=== PATIENT | male | born 1970 | race Caucasian/White ===

== ENCOUNTER → 2019-10-11 11:51 | Outpatient (CLI) | payer MEDICARE, MEDICAID, SELFPAY ==
--- NOTE | 2019-10-11 | DI.CT.S_ITS ---
PROCEDURE: CT CHEST ABD PEL W CON INDICATIONS: Centrilobular emphysema,Gastro-esophageal reflux d TECHNIQUE: After the administration of oral and intravenous contrast, 5 mm thick sections acquired from the lung apices to the symphysis. 5 mm coronal and sagittal reformats were performed, with additional 7 mm coronal MIP reformats through the lungs. For radiation dose reduction, the following was used: automated exposure control, adjustment of mA and/or kV according to patient size. COMPARISON: [facility], CT, CT ABD PELVIS W CON, 10/01/2016, 23:53. FINDINGS: Image quality: Excellent. CHEST: Lungs and pleura: No acute airspace opacities. No pleural effusions or pneumothorax. Central and peripheral airways appear patent and normal in caliber. Mediastinum: Heart size is normal. No pericardial effusion. No mediastinal or hilar adenopathy by size criteria. Thoracic aorta and central pulmonary arteries are normal in size. Esophagus is normal in caliber. No hiatal hernia. Chest wall: No axillary or supraclavicular adenopathy by size criteria. Thyroid gland unremarkable. ABDOMEN: Solid organs: Hepatic steatosis. Right lobe subcapsular enhancement presumably vascular shunting, and unchanged appearance. Gallbladder contains multiple rim calcified gallstones. Biliary system is non dilated. Pancreas enhances normally. Spleen is normal in size and enhancement. No adrenal nodules. Kidneys demonstrate normal size and enhancement, without hydronephrosis. Peritoneum and bowel: Bowel loops demonstrate normal wall thickness and caliber. No free fluid or air. Normal appendix. Rectum grossly unremarkable. Nodes and vessels: No retroperitoneal or mesenteric adenopathy by size criteria. Aorta and inferior vena cava are normal in size. Miscellaneous: No ventral hernias. PELVIS: Genitourinary: Bladder mural thickening is again noted, with circumferential appearance. Miscellaneous: Small bilateral fat containing inguinal hernias. No pelvic adenopathy. Bones: No suspicious bony lesions. No vertebral body compression fractures. IMPRESSION: Redemonstration of circumferential bladder wall thickening, grossly unchanged since 10/01/16 however technically still cannot exclude bladder malignancy, versus chronic cystitis. As clinically warranted, further investigation could be performed with cystoscopy. Cholelithiasis as before. No CT evidence of acute cholecystitis Hepatic steatosis. Additional chronic and incidental findings as above. Dictated by: Miguel Hernandez M.D. on 10/11/2019 at 15:53 Approved by: Miguel Hernandez M.D. on 10/11/2019 at 16:05
--- NOTE | 2019-10-11 | DI.RAD.S_ITS ---
PROCEDURE: XR LUMBAR SPINE 2-3V INDICATIONS: CERVICAL AND LOW BACK PAIN. ARTHRITIS TECHNIQUE: 3 views of the lumbar spine were acquired. COMPARISON: None. FINDINGS: Bones: No fracture or focal osseous destruction. Levocurvature of the lumbar spine. Moderate narrowing of L4-L5 disc space. Multilevel degenerative endplate sclerosis and spurring. Diffuse facet arthropathy. Soft tissues: Residual contrast material seen within both renal collecting systems and ureters, bladder. IMPRESSION: Moderate L4-L5 disc degeneration. Diffuse facet arthropathy Mild levoscoliosis. Dictated by: Miguel Hernandez M.D. on 10/11/2019 at 17:15 Approved by: Miguel Hernandez M.D. on 10/11/2019 at 17:16
--- NOTE | 2019-10-11 | DI.RAD.S_ITS ---
PROCEDURE: XR CERVICAL SPINE 2V OR 3V INDICATIONS: NECK PAIN TECHNIQUE: 4 view(s) of the cervical spine were acquired. COMPARISON: None. FINDINGS: Bones: No acute fracture identified. Straightening of the normal lordotic curvature. Status post C5 corpectomy with interbody graft placement and anterior plate and screw fixation. Hardware appears intact and there is expected postoperative alignment. No evidence of hardware failure or loosening [id number] C6-C7 disc degeneration. Grade 1 anterolisthesis of C3 on C4 Soft tissues: No prevertebral soft tissue swelling. IMPRESSION: Postsurgical changes as above, with mild-moderate disc degeneration at the inferior unfused segment, C6-C7. Straightening of the normal lordotic curvature. Grade 1 anterolisthesis of C3 on C4 Dictated by: Miguel Hernandez M.D. on 10/11/2019 at 17:16 Approved by: Miguel Hernandez M.D. on 10/11/2019 at 17:18
== END ==
PROVIDERS: PCP Family Medicine; Referring Provider Family Medicine; Visit Provider Family Medicine
DX: J43.2 Centrilobular emphysema (principal); K21.0 Gastro-esophageal reflux disease with esophagitis; M85.852 Other specified disorders of bone density and structure, left thigh; K76.0 Fatty (change of) liver, not elsewhere classified; K80.20 Calculus of gallbladder without cholecystitis without obstruction; K40.20 Bilateral inguinal hernia, without obstruction or gangrene, not specified as recurrent; M54.5 Low back pain; M51.36 Other intervertebral disc degeneration, lumbar region; M47.816 Spondylosis without myelopathy or radiculopathy, lumbar region; M41.9 Scoliosis, unspecified; M50.323 Other cervical disc degeneration at C6-C7 level; M43.12 Spondylolisthesis, cervical region; R79.89 Other specified abnormal findings of blood chemistry; R80.9 Proteinuria, unspecified; K52.9 Noninfective gastroenteritis and colitis, unspecified; D37.3 Neoplasm of uncertain behavior of appendix; F17.200 Nicotine dependence, unspecified, uncomplicated
CPT/HCPCS: 71260; 72040; 72100; 74177; 77080; Q9967

== ENCOUNTER 2021-01-20 15:43 | Emergency (ER) | payer MEDICARE, MEDICAID, SELFPAY ==
[2021-01-20 16:03] VITALS: BP 140/66; PULSE 74; RESP 12; TEMP 36.1; O2SAT 98; BMI 30.7
--- NOTE | 2021-01-20 16:06 | DI.RAD.S_ITS ---
PROCEDURE: XR ANKLE LT MIN 3V INDICATIONS: slipped on stairs last night, increase pain/swelling TECHNIQUE: 3 views of the ankle were acquired. COMPARISON: [facility] ([place]), CR, XR ANKLE LT MIN 3V, 01/20/2021, 12:33. FINDINGS: Bones: No fractures or dislocations. Ankle mortise is normally aligned. No suspicious bony lesions. Soft tissues: No tibiotalar joint effusion. Achilles tendon appears normal. Lateral soft tissue swelling is noted and ligamentous injury cannot be excluded. IMPRESSION: No fracture. No osseous lesion. If symptoms and/or clinical suspicion for pathology persists, further assessment with repeat radiographs (7-10 days) or advanced imaging (e.g. CT, MRI or bone scan) should be considered. Dictated by: Ivy Adrian MD, PhD on 01/20/2021 at 16:38 Approved by: Ivy Adrian MD, PhD on 01/20/2021 at 16:39
--- NOTE | 2021-01-20 16:06 | DI.RAD.S_ITS ---
PROCEDURE: XR FOOT LT MIN 3V INDICATIONS: slipped on stairs last night, increase pain/swelling TECHNIQUE: 3 views of the foot were acquired. COMPARISON: None. FINDINGS: Bones: No fractures or dislocations. No suspicious bony lesions. Soft tissues: No tibiotalar joint effusion. Achilles tendon appears normal. IMPRESSION: No fracture. No osseous lesion. If symptoms and/or clinical suspicion for pathology persists, further assessment with repeat radiographs (7-10 days) or advanced imaging (e.g. CT, MRI or bone scan) should be considered. Dictated by: Ivy Adrian MD, PhD on 01/20/2021 at 16:37 Approved by: Ivy Adrian MD, PhD on 01/20/2021 at 16:37
--- NOTE | 2021-01-20 18:03 | ED_ITS ---
HPI - Extremity Injury (Lower) General Chief Complaint: Extremity Injury, Lower Stated Complaint: LEFT ANKLE INJURY Time Seen by Provider: 01/20/21 18:03 Source: patient Mode of arrival: Wheelchair History of Present Illness HPI Narrative: 50-year-old gentleman with a history of hypertension presents after slipping falling and suffering an inversion injury with the left ankle walking across his deck yesterday. [place] and when the pain continued today with increased swelling any was unable to bear weight they came over for further evaluation. He describes no nausea, vomiting, chest pain, palpitations, syncope. He states he did not hit his head and has no other complaints after his recent fall. Related Data Home Medications Medication Instructions Recorded Confirmed albuterol 108 mcg INHALATION .PRN 01/20/21 01/20/21 aspirin 81 mg tablet,delayed 81 mg PO DAILY 01/20/21 01/20/21 release atorvastatin 40 mg tablet 40 mg PO DAILY 01/20/21 01/20/21 cyclobenzaprine 10 mg tablet 10 mg PO TID 01/20/21 01/20/21 epinephrine IM 01/20/21 01/20/21 hydrocodone-acetaminophen 10 - 325 tab PO 01/20/21 01/20/21 lisinopril 10 mg tablet 10 mg PO DAILY 01/20/21 01/20/21 naproxen PO .PRN 01/20/21 01/20/21 omeprazole 40 mg capsule,delayed 40 mg PO DAILY 01/20/21 01/20/21 release Allergies Allergy/AdvReac Type Severity Reaction Status Date / Time Penicillins Allergy Severe Anaphylaxis Verified 01/20/21 12:13 bees AdvReac Severe Anaphylaxis Uncoded 01/20/21 12:13 Review of Systems Review of Systems Narrative: Remainder of complete review of systems is otherwise unremarkable except for that included in the HPI. Patient History Medical History Hypertension Social History Smoking Status: Current every day smoker Smoking Status: Current every day smoker alcohol intake frequency: a few times a month Substance Use Type: marijuana Exam Narrative Exam Narrative: General: Alert appropriate in no acute distress Respiratory: Able to speak in full sentences, no obvious respiratory distress Skin: No obvious rashes, warm and dry Neurologic: Grossly intact no obvious asymmetries or abnormalities Psych: appropriate insight and affect, cooperative Extremity: Left lower extremity is examined. No tenderness or limited range of motion at the left knee. There is no proximal fibular tenderness. Has significant tenderness along the entire roll lateral aspect if it is foot and lateral malleolus. There is quite a bit of swelling over the dorsum of his foot and ecchymosis settling along the lateral border of his left foot. He describes decreased sensation to all toes with good capillary refill and he is able to move all toes. He has limited range of motion at the ankle secondary to pain. Initial Vital Signs Initial Vital Signs: Vital Signs Temperature 97.0 F L 01/20/21 16:03 Pulse Rate 74 01/20/21 16:03 Respiratory Rate 12 01/20/21 16:03 Blood Pressure 140/66 01/20/21 16:03 Pulse Oximetry 98 01/20/21 16:03 Procedures Orthopedic Splinting/Casting Left ankle sprain: Side: left Lower Extremity Injury Location: ankle Lower Extremity Immobilizer: Bruce wrap Post splinting neuro exam: intact Post splinting vascular exam: intact Placed by: Provider Course Orders Ordered: ED Orders 01/20/21 16:06 XR ankle LT min 3V Stat XR foot LT min 3V Stat Vital Signs Vital signs: Vital Signs - 8 hr 01/20/21 16:03 Temperature 97.0 F L Pulse Rate 74 Respiratory Rate 12 Blood Pressure 140/66 Pulse Oximetry 98 MDM - Extremity Injury (Lower) Imaging Data x ray ankle: Radiologist's Impression: FINDINGS: Bones: No fractures or dislocations. Ankle mortise is normally aligned. No suspicious bony lesions. Soft tissues: No tibiotalar joint effusion. Achilles tendon appears normal. Lateral soft tissue swelling is noted and ligamentous injury cannot be excluded. IMPRESSION: No fracture. No osseous lesion. If symptoms and/or clinical suspicion for pathology persists, further assessment with repeat radiographs (7-10 days) or advanced imaging (e.g. CT, MRI or bone scan) should be considered. Dictated by: Ivy Adrian MD, PhD on 01/20/2021 at 16:38 xray foot: Radiologist's Impression: FINDINGS: Bones: No fractures or dislocations. No suspicious bony lesions. Soft tissues: No tibiotalar joint effusion. Achilles tendon appears normal. IMPRESSION: No fracture. No osseous lesion. If symptoms and/or clinical suspicion for pathology persists, further assessment with repeat radiographs (7-10 days) or advanced imaging (e.g. CT, MRI or bone scan) should be considered. Dictated by: Ivy Adrian MD, PhD on 01/20/2021 at 16:37 MDM Narrative Medical decision making narrative: 50-year-old gentleman with a fall and an inv ersion ankle injury with no evidence of fracture. Ankle is placed in a an Bruce wrap with moderate relief of pain with the stability and pressure. He was given crutches for stability and safety. No evidence of other injury and he is safe for home discharge Discharge Plan Departure Patient Disposition: Home Clinical Impression: Ankle sprain and strain Instructions: DI for Ankle Sprain Activity Restrictions/Additional Instructions: Thank you for coming in today Your ankle and foot x-rays were normal. There is no broken bone. You clearly have significantly sprained her ankle. Using the Bruce wrap to help with a bit of stability and keep the swelling from getting too impressive will be helpful. Please use the crutches that you have with you until you are able to more comfortably bear weight on that foot. You can use 2 Aleve and a single Tylenol together and may find that that is more helpful for pain control. You could also simply add to leave to the hydrocodone that you have available to you for your neck pain. With the severity of this brain, I would recommend that you follow-up with the Orthopedic surgery Clinic, [facility] at [phone] I hope you feel better Prescriptions: No Action atorvastatin 40 mg tablet 40 mg PO DAILY RF: 0 lisinopril 10 mg tablet 10 mg PO DAILY RF: 0 aspirin 81 mg tablet,delayed release (DR/EC) 81 mg PO DAILY RF: 0 omeprazole 40 mg capsule,delayed release(DR/EC) 40 mg PO DAILY RF: 0 albuterol 108 mcg inhalation .PRN RF: 0 epinephrine IM RF: 0 cyclobenzaprine 10 mg tablet 10 mg PO TID RF: 0 naproxen PO .PRN RF: 0 hydrocodone-acetaminophen 10 - 325 tab PO RF: 0 Referrals: Philip El MD [Primary Care Provider] -
[2021-01-20 18:14] VITALS: BP 142/79; PULSE 79
== END 2021-01-20 18:36 | disposition home or self-care (01) ==
PROVIDERS: Emergency Provider Emergency Medicine; PCP Family Medicine
DX: S93.402A Sprain of unspecified ligament of left ankle, initial encounter (principal); W19.XXXA Unspecified fall, initial encounter
CPT/HCPCS: 73610; 73630; 99283

== ENCOUNTER → 2021-04-17 09:02 | Outpatient (CLI) | payer MEDICARE, MEDICAID, SELFPAY ==
[2021-04-17 18:34] LABS: Add Manual Diff / Slide Review NO; Basophils Absolute Auto 100 /uL (0-100); Basophils Percent Auto 0.8 % (0-2); Eosinophils Absolute Auto 200 /uL (0-450); Eosinophils Percent Auto 2.2 % (2-4); Hematocrit 46.8 % (41-53); Hemoglobin 15.4 g/dL (13.5-17.5); Lymphocytes Absolute Auto 2600 /uL (1100-4500); Lymphocytes Percent Auto 33.2 % (25-40); Mean Corpuscular Hemoglobin 32.3 PG (26-34); Mean Corpuscular Volume 98.1 fL (80-100); Monocytes Absolute Auto 500 /uL (0-900); Monocytes Percent Auto 6.2 % (3-14); Neutrophils Absolute Auto 4400 /uL (1500-7000); Neutrophils Percent Auto 57.6 % (50-75); Platelet Count 223 X10^3/uL (150-400); Red Blood Cell Count 4.77 X10^6/uL (4.5-5.9); Red Cell Distribution Width 13.8 % (11.6-14.8); White Blood Cell Count 7.7 X10^3/uL (4.5-11.0)
[2021-04-17 18:53] LABS: Alanine Aminotransferase 27 IU/L (<50); Albumin Globulin Ratio 1.6 (1.0-2.8); Alkaline Phosphatase 75 U/L (38-126); Aspartate Aminotransferase 26 IU/L (17-59); BUN Creatinine Ratio 17.9 (6-22); Bilirubin Total 0.4 mg/dL (0.2-1.3); Blood Urea Nitrogen 14 mg/dL (9-20); Calcium 9.2 mg/dL (8.4-10.2); Carbon Dioxide 29 mmol/L (22-32); Chloride 106 mmol/L (98-107); Cholesterol 188 mg/dL (140-199); Estimated Glomerular Filt Rate > 60.0 mL/min (>60); Globulin 2.5 g/dL (1.7-4.1); Glucose 94 mg/dL (70-100); HDL Cholesterol 48 mg/dL (40-60); HEMOLYSIS < 15 (0-50); LDL Cholesterol Calculated 117 mg/dL (<100); Potassium 4.2 mmol/L (3.4-5.1); Sodium 140 mmol/L (137-145); Total Protein 6.5 g/dL (6.3-8.2); Triglycerides 113 mg/dL (35-150)
[2021-04-17 19:21] LABS: Prostate Specific Antigen Scrn 0.903 ng/mL (0.1-4.0)
== END ==
PROVIDERS: PCP Family Medicine; Visit Provider Physician Assistant
DX: I10 Essential (primary) hypertension (principal); N32.89 Other specified disorders of bladder; Z12.5 Encounter for screening for malignant neoplasm of prostate; K21.9 Gastro-esophageal reflux disease without esophagitis; K76.0 Fatty (change of) liver, not elsewhere classified
CPT/HCPCS: 80053; 80061; 85025; G0103

== ENCOUNTER → 2021-04-21 14:49 | Outpatient (CLI) | payer MEDICARE, MEDICAID, SELFPAY ==
[2021-04-23 09:36] LABS: Fecal Immunochemical Test Negative (Negative)
== END ==
PROVIDERS: PCP Family Medicine; Visit Provider Physician Assistant
DX: Z12.11 Encounter for screening for malignant neoplasm of colon (principal)
CPT/HCPCS: 82274

== ENCOUNTER → 2022-02-23 09:52 | Outpatient (CLI) | payer MEDICARE, MEDICAID, SELFPAY ==
--- NOTE | 2022-02-23 10:11 | DI.CT.S_ITS ---
PROCEDURE: CT CERVICAL SPINE WO CON INDICATIONS: for neurosurgery. Metal plate in neck precludes MR TECHNIQUE: Noncontrast 3 mm thick sections acquired from the skull base to the T4 level. Sagittal and coronal reformats were then constructed. For radiation dose reduction, the following was used: automated exposure control, adjustment of mA and/or kV according to patient size. COMPARISON: None. FINDINGS: Image quality: Excellent. Bones: Chronic findings of C5 corpectomy and interbody surgical prosthesis placement, as well as anterior cervical plate and screw fixation with screws present in C4 and C6. Intact surgical hardware with no evidence of hardware failure or loosening. There is trace degenerative anterolisthesis of C3 on C4.4 there is multilevel cervical facet arthropathy. No fractures or dislocations. Visualized superior ribs are intact. At C6-C7, there is diffuse disc bulge plus osteophyte with superimposed mild broad-based left posterior disc protrusion resulting in moderate canal stenosis and more pronounced stenosis of the left side of the canal. There is severe left bony foraminal narrowing at that level with foraminal nerve root impingement. Soft tissues: Prevertebral soft tissues are normal in thickness. No paravertebral hematomas. No apical pneumothoraces. IMPRESSION: 1. Intact surgical hardware spanning C4 through C6 with expected postsurgical findings. 2. At C6-C7, there is moderate central canal stenosis, more pronounced left alida canal stenosis, and severe left foraminal narrowing with left foraminal C7 nerve root impingement. Dictated by: Silvestre Jarrell M.D. on 02/23/2022 at 11:01 Approved by: Silvestre Jarrell M.D. on 02/23/2022 at 11:07
== END ==
PROVIDERS: PCP Family Medicine; Referring Provider Family Medicine; Visit Provider Family Medicine
DX: M48.02 Spinal stenosis, cervical region (principal); M54.12 Radiculopathy, cervical region; M54.2 Cervicalgia; S12.9XXS Fracture of neck, unspecified, sequela; G89.29 Other chronic pain; Z98.890 Other specified postprocedural states
CPT/HCPCS: 72125

== ENCOUNTER → 2022-10-15 16:42 | Outpatient (CLI) | payer MEDICARE, MEDICAID, SELFPAY ==
--- NOTE | 2022-10-15 16:47 | DI.MRI.S_ITS ---
PROCEDURE: MR CERVICAL SPINE WO CON INDICATIONS: PARESTESIA OF THE SKIN TECHNIQUE: Noncontrast sagittal T1 spin echo and T2 fast spin echo, sagittal STIR, foraminal oblique sagittal T2 fast spin echo, and axial gradient echo or T2 fast spin echo through the cervical spine. COMPARISON: [facility], CR, XR CERVICAL SPINE 2V OR 3V, 10/11/2019, 13:36. [facility], CT, CT CERVICAL SPINE WO CON, 02/23/2022, 9:57. [facility], CR, XR CERVICAL SPINE WITH FLEXION EXTENSION, 09/21/2022, 11:27. FINDINGS: Image quality: This examination is limited by involuntary motion artifact. There is artifact associated with the metallic hardware. Alignment and Curvature: There is reversal of the normal cervical lordosis. Minimal anterolisthesis is seen at C3-C4. Bone Marrow: Marrow demonstrates normal overall signal. Spinal Cord: Visualized spinal cord has normal size and signal. No cerebellar tonsillar herniation. Paraspinous Soft Tissues: No paravertebral masses. Prevertebral soft tissues are normal in thickness. Postoperative change is seen, with C5 corpectomy with a metallic strut graft. Anterior fixation hardware can be seen C4 through C6. C2-C3: The disc height is well-preserved. Loss of disc signal is seen at this level. A mild degree of generalized disc osteophyte complex is seen. Mild facet joint hypertrophy is seen. No significant neural foraminal narrowing can be seen. Mild to moderate central canal narrowing is seen at this level. C3-C4: The disc height is well-preserved. Loss of disc signal is seen at this level. Moderate disc osteophyte complex is seen, which is eccentric to the right. There is prominent right-sided and mild left-sided facet hypertrophy. There is moderate to severe right-sided and moderate left-sided neural foraminal narrowing. Moderate central canal narrowing is seen. There is associated mass effect upon the ventral spinal cord. C4-C5: No significant narrowing is seen. C5-C6: Mild facet joint hypertrophy is seen. No significant neural foraminal narrowing can be seen. Mild central canal narrowing is seen. C6-C7: Moderate loss of disc height is seen. Loss of disc signal is seen. Moderate generalized disc osteophyte complex is seen. Mild facet joint hypertrophy is seen. There is at least moderate right-sided and moderate to severe left-sided neural foraminal narrowing. Moderate central canal narrowing is seen. There is associated mass effect upon the ventral spinal cord. C7-T1: The disc height and disk signal are relatively well-preserved. A mild degree of generalized disc osteophyte complex is seen. There is mild right-sided and no left-sided neural foraminal narrowing. No significant central canal narrowing is seen. IMPRESSION: Lower cervical spine postoperative change can be seen. Focal C6-C7 degenerative change, with milder degenerative changes seen elsewhere. Dictated by: Vinayak Villafana M.D. on 10/16/2022 at 11:47 Approved by: Vinayak Villafana M.D. on 10/16/2022 at 11:51
== END ==
PROVIDERS: PCP Family Medicine; Referring Provider Physician Assistant Surgical; Visit Provider Physician Assistant Surgical
DX: M47.812 Spondylosis without myelopathy or radiculopathy, cervical region (principal); R20.2 Paresthesia of skin; Z98.1 Arthrodesis status
CPT/HCPCS: 72141

== ENCOUNTER → 2023-05-11 11:32 | Outpatient (CLI) | payer MEDICARE, MEDICAID, SELFPAY ==
[2023-05-11 19:57] LABS: Add Manual Diff / Slide Review NO; Basophils Absolute Auto 100 /uL (0-100); Basophils Percent Auto 0.9 % (0-2); Eosinophils Absolute Auto 100 /uL (0-450); Hemoglobin 15.6 g/dL (13.5-17.5); Lymphocytes Absolute Auto 2100 /uL (1100-4500); Lymphocytes Percent Auto 22.5 % (25-40); Mean Corpuscular Hemoglobin 32.9 PG (26-34); Mean Corpuscular Volume 96.9 fL (80-100); Monocytes Absolute Auto 500 /uL (0-900); Monocytes Percent Auto 5.5 % (3-14); Neutrophils Absolute Auto 6500 /uL (1500-7000); Neutrophils Percent Auto 70.1 % (50-75); Platelet Count 226 X10^3/uL (150-400); Red Blood Cell Count 4.74 X10^6/uL (4.5-5.9); Red Cell Distribution Width 13.8 % (11.6-14.8); White Blood Cell Count 9.2 X10^3/uL (4.5-11.0)
[2023-05-11 20:04] LABS: BUN Creatinine Ratio 17.8 (6-22); Blood Urea Nitrogen 13 mg/dL (9-20); Calcium 8.8 mg/dL (8.4-10.2); Carbon Dioxide 29 mmol/L (22-32); Chloride 101 mmol/L (98-107); Cholesterol 218 mg/dL (140-199); Estimated Glomerular Filt Rate > 60 mL/min (>60); Glucose 226 mg/dL (70-100); HDL Cholesterol 40 mg/dL (40-60); HEMOLYSIS 23 (0-50); LDL Cholesterol Calculated 137 mg/dL (<100); Potassium 4.4 mmol/L (3.4-5.1); Sodium 136 mmol/L (137-145); Triglycerides 206 mg/dL (35-150)
[2023-05-11 20:53] LABS: Vitamin B12 493 pg/mL (239-931)
[2023-05-12 09:52] LABS: Hemoglobin A1C% w Est Avg Glu 7.2 % (4.0-6.0)
== END ==
PROVIDERS: PCP Family Medicine; Visit Provider Family Medicine
DX: K21.9 Gastro-esophageal reflux disease without esophagitis (principal); I10 Essential (primary) hypertension; E11.9 Type 2 diabetes mellitus without complications; E78.2 Mixed hyperlipidemia; Z12.11 Encounter for screening for malignant neoplasm of colon; Z12.5 Encounter for screening for malignant neoplasm of prostate; Z13.220 Encounter for screening for lipoid disorders
CPT/HCPCS: 80048; 80061; 82607; 83036; 85025

== ENCOUNTER → 2023-11-11 09:31 | Outpatient (CLI) | payer MEDICARE, MEDICAID, SELFPAY ==
[2023-11-11 19:44] LABS: Add Manual Diff / Slide Review NO; Basophils Absolute Auto 100 /uL (0-100); Basophils Percent Auto 1.3 % (0-2); Eosinophils Absolute Auto 100 /uL (0-450); Eosinophils Percent Auto 1.5 % (2-4); Hematocrit 48.4 % (41-53); Hemoglobin 16.4 g/dL (13.5-17.5); Lymphocytes Absolute Auto 3400 /uL (1100-4500); Lymphocytes Percent Auto 42.2 % (25-40); Mean Corpuscular HGB Conc 33.8 % (30-36); Mean Corpuscular Hemoglobin 32.2 PG (26-34); Mean Corpuscular Volume 95.1 fL (80-100); Monocytes Absolute Auto 300 /uL (0-900); Monocytes Percent Auto 3.7 % (3-14); Neutrophils Absolute Auto 4100 /uL (1500-7000); Neutrophils Percent Auto 51.3 % (50-75); Platelet Count 217 X10^3/uL (150-400); Red Blood Cell Count 5.09 X10^6/uL (4.5-5.9)
[2023-11-11 20:16] LABS: Hemoglobin A1C% w Est Avg Glu 8.6 % (4.0-6.0)
[2023-11-11 20:28] LABS: Aspartate Aminotransferase 21 IU/L (17-59); Bilirubin Total 0.7 mg/dL (0.2-1.3); Cholesterol 237 mg/dL (140-199); HDL Cholesterol 42 mg/dL (40-60)
[2023-11-11 20:34] LABS: Alanine Aminotransferase 32 IU/L (<50); Albumin Globulin Ratio 1.5 (1.0-2.8); Alkaline Phosphatase 88 U/L (38-126); BUN Creatinine Ratio 14.8 (6-22); Blood Urea Nitrogen 12 mg/dL (9-20); Calcium 9.2 mg/dL (8.4-10.2); Carbon Dioxide 29 mmol/L (22-32); Chloride 107 mmol/L (98-107); Estimated Glomerular Filt Rate > 60 mL/min (>60); Globulin 2.7 g/dL (1.7-4.1); Glucose 174 mg/dL (70-100); HEMOLYSIS 18 (0-50); LDL Cholesterol Calculated 169 mg/dL (<100); Potassium 4.5 mmol/L (3.4-5.1); Sodium 139 mmol/L (137-145); Total Protein 6.7 g/dL (6.3-8.2); Triglycerides 131 mg/dL (35-150)
[2023-11-11 21:19] LABS: Creatinine Urine Random 227.4 mg/dL
[2023-11-11 21:23] LABS: Microalbumi Creatinin Ratio Ur 3.9 ug/mg CR (<30); Microalbumin Urine Random 0.9 mg/dL (0-1.6)
== END ==
PROVIDERS: PCP Family Medicine; Visit Provider Family Medicine
DX: E11.9 Type 2 diabetes mellitus without complications (principal); E11.42 Type 2 diabetes mellitus with diabetic polyneuropathy; I10 Essential (primary) hypertension
CPT/HCPCS: 80053; 80061; 82043; 82570; 83036; 85025

== ENCOUNTER → 2024-01-25 09:21 | Outpatient (CLI) | payer MEDICARE, MEDICAID, SELFPAY ==
--- NOTE | 2024-01-25 09:22 | DI.RAD.S_ITS ---
PROCEDURE: FL SHOULDER INJECTION MR/CT RT INDICATIONS: COMPLETE TEAR OF RT ROTATOR CUFF COMPARISON: [facility], CR, XR SHOULDER 2+ VIEWS RIGHT, 10/05/2023, 11:13. TECHNIQUE: The indications, alternatives, benefits, risks, and complications of the procedure were explained to the patient. Written informed consent was obtained and placed in the chart. The shoulder was examined fluoroscopically and a site for needle placement chosen for entry into the glenohumeral joint from an anterior approach. The skin was prepped and draped in a sterile fashion, and 1% lidocaine infiltrated from skin down to joint capsule. A spinal needle was inserted into the glenohumeral joint, and a small amount of iodinated contrast media injected to confirm intra-articular placement of the needle tip. This was followed by approximately 12 mL dilute solution of a gadolinium containing MR contrast agent. The needle was removed and a dressing was applied. The patient was given postprocedural instructions and sent to the MR suite for MR imaging. FINDINGS: A single fluoroscopic spot image demonstrates intra-articular location of injected iodinated contrast. IMPRESSION: Successful fluoroscopically guided administration of dilute Gadolinium solution into the shoulder joint for MR arthrogram. Approved by: Sandeep Hernández M.D. on 01/25/2024 at 13:53
--- NOTE | 2024-01-25 09:23 | DI.MRI.S_ITS ---
PROCEDURE: MR SHOULDER RT W CON INDICATIONS: COMPLETE TEAR OF RT ROTATOR CUFF TECHNIQUE: After the administration of 12 mL of dilute intra-articular Gadolinium contrast, oblique coronal T1 and T2 spin echo with fat saturation, oblique sagittal T1 spin echo with and without fat saturation, oblique sagittal T2 fast spin echo with fat saturation, axial T1 spin echo with fat saturation through the shoulder. COMPARISON: [facility], MR, MR SHOULDER RIGHT WITHOUT CONTRAST, 07/03/2023, 13:08. [facility], CR, XR SHOULDER 2+ VIEWS RIGHT, 10/05/2023, 11:13. [facility], RF, [place] SHOULDER INJECTION MR/CT RT, 01/25/2024, 9:24. FINDINGS: Image quality: Excellent. Rotator cuff: There is mild supraspinatus and infraspinatus tendinosis. The teres minor tendon is intact. There is likely low-grade partial articular sided tearing of the distal subscapularis tendon although findings may be related to mild extravasation of contrast material in the arthrogram injection. Small amount of contrast material is seen tracking medially along the subscapularis muscle related to mild extravasation. The rotator cuff musculature is normal in bulk. Bones and bursae: Postsurgical changes from distal clavicular resection with widening of the acromioclavicular joint. The distal clavicle mildly impinges upon the dorsal supraspinatus without associated muscular edema or tearing. There is a small amount of noncommunicating fluid in the subacromial/subdeltoid bursa. Mild soft tissue edema is seen at the lateral aspect of the trapezoid disc posterior to the distal clavicle surgical site, possibly related to muscle strain or healing postsurgical changes. A surgical anchor is seen in the humeral head at the superior aspect of the intertubercular groove. No focal glenohumeral cartilage defect. No intra-articular loose body. Capsule and soft tissues: There is focal uptake of contrast material at the superior labrum that is suspicious for nondisplaced or partial tearing. The labrum otherwise appears to be intact. Status post biceps long head tenodesis with an intact surgical construct. Glenohumeral ligaments are intact. IMPRESSION: 1. Focal nondisplaced tearing at the superior labrum with uptake of intra-articular contrast material. 2. Status post biceps long head tenodesis with an intact surgical construct. 3. Postsurgical widening of the acromioclavicular joint. Mild intramuscular edema is seen near the lateral trapezius insertion onto the distal clavicle that may represent a focal muscle strain or healing postsurgical changes. 4. Residual low-grade partial articular sided tearing of the distal subscapularis tendon versus extravasation related to the arthrogram injection. Mild supraspinatus and infraspinatus tendinosis. No full-thickness rotator cuff tendon tear. 5. Small amount noncommunicating fluid is seen in the subacromial/subdeltoid bursa that is expected in the postsurgical setting. Approved by: Sandeep Hernández M.D. on 01/25/2024 at 16:18
[2024-01-25] MEDS: LIDOCAINE 1% 20 ML INJ (10:33)
[2024-01-25] MEDS: SODIUM CHLORIDE 0.9 % 20 ML VIAL IV (10:34)
== END ==
PROVIDERS: PCP Family Medicine; Referring Provider Orthopaedic Surgery; Visit Provider Orthopaedic Surgery
DX: M75.121 Complete rotator cuff tear or rupture of right shoulder, not specified as traumatic (principal)
CPT/HCPCS: 23350; 73040; 73222; A9579; Q9967

== ENCOUNTER → 2024-03-13 09:07 | Outpatient (CLI) | payer MEDICARE, MEDICAID, SELFPAY ==
[2024-03-13 19:45] LABS: Add Manual Diff / Slide Review NO; Basophils Absolute Auto 100 /uL (0-100); Basophils Percent Auto 0.9 % (0-2); Eosinophils Absolute Auto 100 /uL (0-450); Eosinophils Percent Auto 1.9 % (2-4); Hematocrit 45.8 % (41-53); Hemoglobin 15.6 g/dL (13.5-17.5); Lymphocytes Absolute Auto 2000 /uL (1100-4500); Mean Corpuscular HGB Conc 34.1 % (30-36); Mean Corpuscular Hemoglobin 32.9 PG (26-34); Mean Corpuscular Volume 96.7 fL (80-100); Monocytes Absolute Auto 500 /uL (0-900); Monocytes Percent Auto 7.1 % (3-14); Neutrophils Absolute Auto 3700 /uL (1500-7000); Neutrophils Percent Auto 58.1 % (50-75); Platelet Count 200 X10^3/uL (150-400); Red Blood Cell Count 4.74 X10^6/uL (4.5-5.9); Red Cell Distribution Width 13.5 % (11.6-14.8); White Blood Cell Count 6.4 X10^3/uL (4.5-11.0)
[2024-03-13 19:58] LABS: Hemoglobin A1C% w Est Avg Glu 7.9 % (4.0-6.0)
[2024-03-13 19:59] LABS: Alanine Aminotransferase 32 IU/L (<50); Albumin 3.9 g/dL (3.5-5.0); Albumin Globulin Ratio 1.4 (1.0-2.8); Alkaline Phosphatase 81 U/L (38-126); Aspartate Aminotransferase 24 IU/L (17-59); BUN Creatinine Ratio 14.9 (6-22); Bilirubin Total 0.7 mg/dL (0.2-1.3); Blood Urea Nitrogen 11 mg/dL (9-20); Calcium 8.9 mg/dL (8.4-10.2); Carbon Dioxide 28 mmol/L (22-32); Chloride 106 mmol/L (98-107); Cholesterol 238 mg/dL (140-199); Estimated Glomerular Filt Rate > 60 mL/min (>60); Globulin 2.7 g/dL (1.7-4.1); Glucose 207 mg/dL (70-100); HDL Cholesterol 45 mg/dL (40-60); HEMOLYSIS 28 (0-50); LDL Cholesterol Calculated 161 mg/dL (<100); Potassium 4.3 mmol/L (3.4-5.1); Sodium 136 mmol/L (137-145); Total Protein 6.6 g/dL (6.3-8.2); Triglycerides 158 mg/dL (35-150)
[2024-03-13 21:36] LABS: Creatinine Urine Random 161.47 mg/dL
[2024-03-13 21:41] LABS: Microalbumin Urine Random 0.7 mg/dL (0-1.6)
== END ==
PROVIDERS: PCP Family Medicine; Visit Provider Family Medicine
DX: E11.9 Type 2 diabetes mellitus without complications (principal); I10 Essential (primary) hypertension
CPT/HCPCS: 80053; 80061; 82043; 82570; 83036; 85025

== ENCOUNTER → 2024-04-20 08:22 | Outpatient (CLI) | payer MEDICARE, MEDICAID, SELFPAY ==
[2024-04-20 19:00] LABS: Aspartate Aminotransferase 19 IU/L (17-59)
== END ==
PROVIDERS: PCP Family Medicine; Visit Provider Family Medicine
DX: B35.1 Tinea unguium (principal)
CPT/HCPCS: 84450

== ENCOUNTER → 2024-09-18 16:40 | Outpatient (CLI) | payer MEDICARE, MEDICAID, SELFPAY | PROVIDERS: PCP Family Medicine; Visit Provider Family Medicine | DX: L02.91 Cutaneous abscess, unspecified (principal) | CPT/HCPCS: 87070; 87075; 87077; 87147; 87186; 87205 ==

== ENCOUNTER → 2024-11-04 12:49 | Outpatient (CLI) | payer MEDICARE, MEDICAID, SELFPAY ==
--- NOTE | 2024-11-04 12:50 | DI.MRI.S_ITS ---
PROCEDURE: MR SHOULDER LT WO CON INDICATIONS: Left shoulder pain following injury TECHNIQUE: Noncontrast oblique coronal T2 fast spin echo with fat saturation, oblique sagittal T1 spin echo and T2 fast spin echo with fat saturation, axial T1 spin echo and T2 fast spin echo with fat saturation through the shoulder. COMPARISON: [facility] ([place]), CR, XR SHOULDER LT MIN 2V, 10/06/2024, 15:02. FINDINGS: Image quality: Excellent. Rotator cuff: Low-grade partial intrasubstance tearing of the supraspinatus tendon at the distal insertion measuring 4 mm in anterior-posterior dimension. Mild supraspinatus and infraspinatus tendinosis. Teres minor tendon is intact. Mild subscapularis tendinosis. The rotator cuff musculature is normal in bulk. Bones and bursae: Osseous edema is seen at the distal clavicle adjacent to the acromioclavicular joint. No fracture line is seen. Moderate degenerative changes at the acromioclavicular joint with subchondral cystic changes and marginal osteophytes. No focal glenohumeral cartilage defect. Cystic changes are seen at the lesser tuberosity. Minimal spurring in the glenoid rim. Small amount of fluid is seen in subacromial/subdeltoid bursa. No significant glenohumeral effusion. Capsule and soft tissues: Nondisplaced tearing at the superior to anterior superior labrum. Proximal biceps long head tendon demonstrates mild tendinosis. There is mild partial effacement of fat signal in the rotator interval. The anterior band inferior glenohumeral ligament is mildly thickened. IMPRESSION: 1. Mild osseous edema at the distal clavicle is nonspecific and may be related to an osseous contusion in the setting of prior trauma versus moderate acromioclavicular osteoarthrosis or chronic repetitive microtrauma. 2. Focal low-grade partial intrasubstance tearing of the supraspinatus tendon at the distal insertion measuring 4 mm in anterior-posterior dimension. Mild diffuse rotator cuff tendinosis. 3. Mild proximal biceps long head tendinosis. 4. Nondisplaced tearing of the superior to anterior superior labrum. 5. Small subacromial/subdeltoid bursal effusion or mild bursitis. 6. Partial effacement of the rotator interval fat and mild thickening of the inferior glenohumeral ligament are nonspecific, but can be seen in the setting of the clinical syndrome of adhesive capsulitis. Approved by: Sandeep Hernández M.D. on 11/06/2024 at 8:53
== END ==
PROVIDERS: PCP Family Medicine; Referring Provider Family Medicine; Visit Provider Family Medicine
DX: M75.112 Incomplete rotator cuff tear or rupture of left shoulder, not specified as traumatic (principal); S43.492A Other sprain of left shoulder joint, initial encounter
CPT/HCPCS: 73221

== ENCOUNTER → 2024-11-30 11:22 | Outpatient (CLI) | payer MEDICARE, MEDICAID, SELFPAY ==
[2024-11-30 19:19] LABS: Add Manual Diff / Slide Review NO; Basophils Absolute Auto 100 /uL (0-100); Eosinophils Absolute Auto 100 /uL (0-450); Eosinophils Percent Auto 0.9 % (2-4); Hematocrit 51.4 % (41-53); Hemoglobin 17.4 g/dL (13.5-17.5); Lymphocytes Absolute Auto 2400 /uL (1100-4500); Lymphocytes Percent Auto 26.4 % (25-40); Mean Corpuscular HGB Conc 33.8 % (30-36); Mean Corpuscular Hemoglobin 32.6 PG (26-34); Mean Corpuscular Volume 96.4 fL (80-100); Monocytes Absolute Auto 600 /uL (0-900); Monocytes Percent Auto 6.5 % (3-14); Neutrophils Absolute Auto 5800 /uL (1500-7000); Neutrophils Percent Auto 65.2 % (50-75); Platelet Count 234 X10^3/uL (150-400); Red Blood Cell Count 5.33 X10^6/uL (4.5-5.9); Red Cell Distribution Width 13.2 % (11.6-14.8)
[2024-11-30 19:38] LABS: Hemoglobin A1C% w Est Avg Glu 8.7 % (4.0-6.0)
[2024-11-30 19:40] LABS: Blood Urea Nitrogen 12 mg/dL (9-20); Calcium 9.3 mg/dL (8.4-10.2); Carbon Dioxide 28 mmol/L (22-32); Chloride 103 mmol/L (98-107); Cholesterol 260 mg/dL (140-199); Estimated Glomerular Filt Rate > 60 mL/min (>60); Glucose 178 mg/dL (70-100); HDL Cholesterol 42 mg/dL (40-60); HEMOLYSIS 37 (0-50); LDL Cholesterol Calculated 194 mg/dL (<100); Potassium 3.9 mmol/L (3.4-5.1); Sodium 139 mmol/L (137-145); Triglycerides 122 mg/dL (35-150)
[2024-11-30 20:14] LABS: Creatinine Urine Random 338.52 mg/dL
[2024-11-30 20:18] LABS: Microalbumin Urine Random 2.5 mg/dL (0-1.6)
== END ==
PROVIDERS: PCP Family Medicine; Visit Provider Family Medicine
DX: E78.2 Mixed hyperlipidemia (principal); E11.9 Type 2 diabetes mellitus without complications; I10 Essential (primary) hypertension; M75.42 Impingement syndrome of left shoulder; R80.9 Proteinuria, unspecified
CPT/HCPCS: 80048; 80061; 82043; 82570; 83036; 85025